=== PATIENT | male | born 1960 | race Caucasian/White ===

== ENCOUNTER 2019-01-27 08:07 | Emergency (ER) | payer MEDICARE ==
[~2019-01-27] VITALS: Ht 182.9 cm; Wt 113.4 kg
[~2019-01-27 08:07] MED LIST: DIAZ5; HYDACE5 PO; LEVFLO500 PO; OXYB5
[2019-01-27] MEDS ORDERED: Percocet 5-3251 EACH PO (09:12)
== END 2019-01-27 12:34 | disposition home or self-care (01) ==
LOC: ER 08:07
DX: M25.511 Pain in right shoulder (principal); Z91.041 Radiographic dye allergy status; Z79.899 Other long term (current) drug therapy
CPT/HCPCS: 73030; 99283-25

== ENCOUNTER 2019-05-08 22:15 | Observation (INO) | payer MEDICARE ==
[~2019-05-08] VITALS: Ht 182.9 cm; Wt 108.9 kg
[~2019-05-08 22:15] MED LIST changes: +Percocet 5-3251 EACH PO
[2019-05-08] MEDS ORDERED: ZESTORETIC 20-121 EA PO (22:28)
[2019-05-09 03:12] LABS: Source, Urine Catheter
[2019-05-09 03:14] LABS: Appearance, Urine Cloudy (Clear); Bilirubin, Urine Neg (Neg); Blood, Urine 4+ (Neg); Color, Urine Yellow (P-Yellow); Glucose Qualitative, Urine Neg (Neg); Ketones, Urine 2+ (Neg); Leukocyte Esterase, Urine 3+ (Neg); Nitrite, Urine Pos (Neg); Protein, Urine 2+ (Neg); Specific Gravity, Urine 1.015 (1.003-1.022); Urobilinogen, Urine 2+ (Normal)
[2019-05-09 03:20] LABS: Bacteria Many /hpf; Red Blood Cells, Urine 0-2 /hpf (0-2); White Blood Cells, Urine TNTC /hpf (0-5)
[2019-05-09 03:21] LABS: Squamous Epithelial Cells Few /hpf (Few); Triple Phosphate Crystals Many /hpf
--- NOTE | 2019-05-09 03:29 | NUR ---
COMPLETE BED BATH WAS GIVEN. SUPRAPUBIC CATH BAG WAS CHANGED AND UA WAS SENT. DR. MONACO WAS INFORMED OF UA RESULTS, NO ORDERS FOR ABX. STATES IF PT BECOMES SYMPTOMATIC WITH FEVER TO CALL AND WILL START ON ABX.
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
--- NOTE | 2019-05-09 11:10 | NUR ---
Advance Directive education conducted. Upon receiving and admit referral for advance directive education, I visited patient. I talked about the importance, content and process of the advance directive. I also discussed how to file the information. Patient had limited comprehension and interest. Patient received a phone call so our discussion got cut short but I left a booklet with the patient and he thanked me for it.
[2019-05-09] MEDS ORDERED: CIPR500 PO (13:59)
--- NOTE | 2019-05-09 17:50 | NUR ---
SHIFT SUMMARY PT A&OX4, VSS, PLAN IS FOR DC HOME WITH HH, PT IS WORKING ON A [employer] HOME, CAREGIVERS 24 HOUR. CIPRO SCRIPT FAXED TO [facility]. WILL REPORT TO ESMER ACUNA RN IF PT DOES NOT DC.
--- NOTE | 2019-05-10 04:07 | NUR ---
SHIFT SUMMARY PT RESTED QUIETLY IN BED T/O SHIFT W/OUT ANY ACUTE CHANGES. A/OX4 WITH VSS. ABLE TO VISIT WITH NEW CAREGIVER THIS EVENING. MEPILEX TO BUTTOCKS C/D/I. SUPER PUBIC CATH IN PLACE DRAINING AISHWARYA COLORED URINE. ASSISTED W/ADL'S AND REPOSITIONING PRN. IS CURRENTLY RESTING IN BED WITH CPAP IN PLACE- SPO2 AT 93% AND HAS CALL LIGHT WITHIN REACH. PLAN FOR D/C HOME TODAY WITH H/H. WILL CONT TO MONITOR AND GIVE REPORT TO ONCOMING RN.
--- NOTE | 2019-05-10 10:05 | NUR ---
DISCHARGE SUMMARY PT A&OX4, VSS, LEFT FLOOR IN HIS OWN WC WITH HIS BROTHER, ALONG WITH HIS PERSONAL POSSESSIONS AND DC PACKET AND SCRIPT FOR S[place]; SCRIPT FOR ABX WAS FAXED TO [facility] WITH CONFIRMATION PAGE OF RECEIPT IN CHART. DC INSTRUCTIONS PROVIDED. PT REP UNDERSTANDING THOSE INSTRUCTIONS INCLUDING [facility] WILL FU, MEPILEX CHANGES TO BUTTOCKS AND DMAIEN HEELS, ABX AT PHARMACY. NO IV TO DC.
== END 2019-05-10 10:05 | disposition home health service (06) ==
LOC: ER 22:15 → SURS 22:16
PROVIDERS: ADMIT Hospitalist
DX: L89.152 Pressure ulcer of sacral region, stage 2 (principal); G82.21 Paraplegia, complete; S24.102S Unspecified injury at T2-T6 level of thoracic spinal cord, sequela; G90.4 Autonomic dysreflexia; N31.9 Neuromuscular dysfunction of bladder, unspecified; I10 Essential (primary) hypertension; R82.81 Pyuria; G47.30 Sleep apnea, unspecified; E66.9 Obesity, unspecified; Z68.32 Body mass index [BMI] 32.0-32.9, adult; Z88.5 Allergy status to narcotic agent; Z88.6 Allergy status to analgesic agent; Z91.041 Radiographic dye allergy status; Z79.899 Other long term (current) drug therapy; Z96.0 Presence of urogenital implants; X58.XXXS Exposure to other specified factors, sequela
CPT/HCPCS: 81001; 87086; 94660; 94762; 96372; 99284; A9270-GY; G0378; J0696; J1650

== ENCOUNTER 2024-04-03 04:14 | Day surgery (SDC) | payer MEDICARE ==
[~2024-04-03 04:14] MED LIST changes: +CIPR500 PO; +ZESTORETIC 20-121 EA PO
== END 2024-04-03 23:00 | disposition home or self-care (01) ==
LOC: WOUND 04:14
DX: L89.153 Pressure ulcer of sacral region, stage 3 (principal); L89.324 Pressure ulcer of left buttock, stage 4; L89.314 Pressure ulcer of right buttock, stage 4; I10 Essential (primary) hypertension
CPT/HCPCS: A6213; G0463

== ENCOUNTER 2024-04-11 01:51 | Day surgery (SDC) | payer MEDICARE | END 2024-04-11 23:00 | disposition home or self-care (01) | LOC: WOUND 01:51 | DX: L89.304 Pressure ulcer of unspecified buttock, stage 4 (principal); L89.153 Pressure ulcer of sacral region, stage 3; I10 Essential (primary) hypertension; G82.20 Paraplegia, unspecified; G47.33 Obstructive sleep apnea (adult) (pediatric) | CPT/HCPCS: A6213 ==

== ENCOUNTER 2024-04-18 05:44 | Day surgery (SDC) | payer MEDICARE ==
[2024-04-18] MEDS ORDERED: Lidocaine HCl 4% Cream 5 GM ONE (14:57)
[2024-04-18] MEDS ORDERED: Silver Nitr/Potassium Nitrate 1 EA APPL ONE ×2 (15:14→15:18)
== END 2024-04-18 23:00 | disposition home or self-care (01) ==
LOC: WOUND 05:44
DX: L89.304 Pressure ulcer of unspecified buttock, stage 4 (principal); L89.153 Pressure ulcer of sacral region, stage 3; I10 Essential (primary) hypertension; G82.20 Paraplegia, unspecified; G47.33 Obstructive sleep apnea (adult) (pediatric)
CPT/HCPCS: A6213; A9270

== ENCOUNTER 2024-05-02 06:25 | Day surgery (SDC) | payer MEDICARE ==
[2024-05-02] MEDS ORDERED: Lidocaine HCl 4% Cream 5 GM ONE (15:54)
== END 2024-05-02 23:00 | disposition home or self-care (01) ==
LOC: WOUND 06:25
DX: L89.153 Pressure ulcer of sacral region, stage 3 (principal); L89.304 Pressure ulcer of unspecified buttock, stage 4; L89.314 Pressure ulcer of right buttock, stage 4; G47.33 Obstructive sleep apnea (adult) (pediatric); I10 Essential (primary) hypertension
CPT/HCPCS: 87071; 87075; 87077; 87147; 87186; 87205; A6213; A9270

== ENCOUNTER 2024-05-09 04:45 | Day surgery (SDC) | payer MEDICARE ==
[2024-05-09] MEDS ORDERED: Lidocaine HCl 4% Topical Soln 50 ML BTL ONE (13:03)
== END 2024-05-09 23:00 | disposition home or self-care (01) ==
LOC: WOUND 04:45
DX: L89.314 Pressure ulcer of right buttock, stage 4 (principal); L89.894 Pressure ulcer of other site, stage 4; L89.153 Pressure ulcer of sacral region, stage 3; I10 Essential (primary) hypertension; G82.20 Paraplegia, unspecified; G47.33 Obstructive sleep apnea (adult) (pediatric); S21.90XA Unspecified open wound of unspecified part of thorax, initial encounter; Z87.891 Personal history of nicotine dependence; Z91.041 Radiographic dye allergy status; Z88.5 Allergy status to narcotic agent; Z88.8 Allergy status to other drugs, medicaments and biological substances; Z79.899 Other long term (current) drug therapy
CPT/HCPCS: 71046; 99283-25; A6213; G0463

== ENCOUNTER 2024-05-09 14:18 | Emergency (ER) | payer MEDICARE ==
[~2024-05-09] VITALS: Ht 182.9 cm; Wt 104.3 kg
[2024-05-09 19:30] VITALS: BP 159/65
== END 2024-05-09 20:00 | disposition home or self-care (01) ==
LOC: ER 14:18
DX: S21.90XA Unspecified open wound of unspecified part of thorax, initial encounter (principal); I10 Essential (primary) hypertension; G82.20 Paraplegia, unspecified; Z87.891 Personal history of nicotine dependence; Z91.041 Radiographic dye allergy status; Z88.5 Allergy status to narcotic agent; Z88.8 Allergy status to other drugs, medicaments and biological substances; Z79.899 Other long term (current) drug therapy
CPT/HCPCS: 71046; 99283-25

== ENCOUNTER 2024-05-16 02:05 | Day surgery (SDC) | payer MEDICARE | END 2024-05-16 23:00 | disposition home or self-care (01) | LOC: WOUND 02:05 | DX: L89.153 Pressure ulcer of sacral region, stage 3 (principal); L89.324 Pressure ulcer of left buttock, stage 4; L89.314 Pressure ulcer of right buttock, stage 4; L89.894 Pressure ulcer of other site, stage 4; I10 Essential (primary) hypertension; G82.20 Paraplegia, unspecified; G47.33 Obstructive sleep apnea (adult) (pediatric) | CPT/HCPCS: A6213 ==

== ENCOUNTER → 2024-05-23 | Day surgery (SDC) | payer MEDICARE ==
[~2024-05-23] MED LIST changes: +Lidocaine HCl 4% Cream 5 GM ONE
== END ==
LOC: WOUND 04:45
DX: L89.114 Pressure ulcer of right upper back, stage 4 (principal); L89.153 Pressure ulcer of sacral region, stage 3; L89.304 Pressure ulcer of unspecified buttock, stage 4; G82.20 Paraplegia, unspecified; I10 Essential (primary) hypertension; G47.33 Obstructive sleep apnea (adult) (pediatric)
CPT/HCPCS: A6213; A9270; G0463

== ENCOUNTER 2024-05-30 01:44 | Day surgery (SDC) | payer MEDICARE ==
[~2024-05-30 01:44] MED LIST changes: -Lidocaine HCl 4% Cream 5 GM ONE
[2024-05-30] MEDS ORDERED: Lidocaine HCl 4% Topical Soln 50 ML BTL ONE (13:59)
== END 2024-05-30 23:00 | disposition home or self-care (01) ==
LOC: WOUND 01:44
DX: L89.153 Pressure ulcer of sacral region, stage 3 (principal); L89.114 Pressure ulcer of right upper back, stage 4; L89.304 Pressure ulcer of unspecified buttock, stage 4; L89.303 Pressure ulcer of unspecified buttock, stage 3; I10 Essential (primary) hypertension

== ENCOUNTER 2024-06-20 02:34 | Day surgery (SDC) | payer MEDICARE ==
[2024-06-20] MEDS ORDERED: Lidocaine HCl 4% Topical Soln 50 ML BTL ONE (13:34)
== END 2024-06-20 23:00 | disposition home or self-care (01) ==
LOC: WOUND 02:34
DX: L89.153 Pressure ulcer of sacral region, stage 3 (principal); L89.304 Pressure ulcer of unspecified buttock, stage 4; L89.114 Pressure ulcer of right upper back, stage 4; G82.20 Paraplegia, unspecified; I10 Essential (primary) hypertension; G47.33 Obstructive sleep apnea (adult) (pediatric)
CPT/HCPCS: A6213

== ENCOUNTER 2024-07-04 02:28 | Day surgery (SDC) | payer MEDICARE ==
[2024-07-04] MEDS ORDERED: Lidocaine HCl 4% Topical Soln 50 ML BTL ONE (14:31)
== END 2024-07-04 23:00 | disposition home or self-care (01) ==
LOC: WOUND 02:28
DX: L89.153 Pressure ulcer of sacral region, stage 3 (principal); L89.894 Pressure ulcer of other site, stage 4; L89.304 Pressure ulcer of unspecified buttock, stage 4; L89.303 Pressure ulcer of unspecified buttock, stage 3; I10 Essential (primary) hypertension; G82.20 Paraplegia, unspecified; L89.114 Pressure ulcer of right upper back, stage 4
CPT/HCPCS: A6213

== ENCOUNTER 2024-07-25 02:42 | Day surgery (SDC) | payer MEDICARE ==
[2024-07-25] MEDS ORDERED: Lidocaine HCl 4% Topical Soln 50 ML BTL ONE (13:27)
== END 2024-07-25 23:00 | disposition home or self-care (01) ==
LOC: WOUND 02:42
DX: L89.153 Pressure ulcer of sacral region, stage 3 (principal); L89.114 Pressure ulcer of right upper back, stage 4; L89.324 Pressure ulcer of left buttock, stage 4; L89.314 Pressure ulcer of right buttock, stage 4; I10 Essential (primary) hypertension; G82.20 Paraplegia, unspecified
CPT/HCPCS: A6213

== ENCOUNTER 2024-08-08 04:01 | Day surgery (SDC) | payer MEDICARE ==
[2024-08-08] MEDS ORDERED: Lidocaine HCl 4% Topical Soln 50 ML BTL ONE (13:46)
== END 2024-08-08 23:00 | disposition home or self-care (01) ==
LOC: WOUND 04:01
DX: L89.153 Pressure ulcer of sacral region, stage 3 (principal); L89.324 Pressure ulcer of left buttock, stage 4; L89.314 Pressure ulcer of right buttock, stage 4; L89.114 Pressure ulcer of right upper back, stage 4; G47.33 Obstructive sleep apnea (adult) (pediatric); I10 Essential (primary) hypertension
CPT/HCPCS: A6213

== ENCOUNTER 2024-08-23 03:01 | Day surgery (SDC) | payer MEDICARE ==
[2024-08-23] MEDS ORDERED: Lidocaine HCl 4% Topical Soln 50 ML BTL ONE (13:27)
== END 2024-08-23 23:00 | disposition home or self-care (01) ==
LOC: WOUND 03:01
DX: L89.114 Pressure ulcer of right upper back, stage 4 (principal); L89.304 Pressure ulcer of unspecified buttock, stage 4; L89.153 Pressure ulcer of sacral region, stage 3; I10 Essential (primary) hypertension; G82.20 Paraplegia, unspecified; G47.33 Obstructive sleep apnea (adult) (pediatric)
CPT/HCPCS: G0463

== ENCOUNTER 2024-09-06 05:10 | Day surgery (SDC) | payer MEDICARE ==
[2024-09-06] MEDS ORDERED: Lidocaine HCl 4% Topical Soln 50 ML BTL ONE (13:48)
== END 2024-09-06 23:00 | disposition home or self-care (01) ==
LOC: WOUND 05:10
DX: L89.114 Pressure ulcer of right upper back, stage 4 (principal); L89.304 Pressure ulcer of unspecified buttock, stage 4; L89.153 Pressure ulcer of sacral region, stage 3; L89.303 Pressure ulcer of unspecified buttock, stage 3; I10 Essential (primary) hypertension; G82.20 Paraplegia, unspecified; G47.33 Obstructive sleep apnea (adult) (pediatric)
CPT/HCPCS: A6196; G0463

== ENCOUNTER 2024-10-04 02:48 | Day surgery (SDC) | payer MEDICARE ==
[2024-10-04] MEDS ORDERED: Lidocaine HCl 4% Topical Soln 50 ML BTL ONE (13:52)
== END 2024-10-04 23:00 | disposition home or self-care (01) ==
LOC: WOUND 02:48
DX: L89.304 Pressure ulcer of unspecified buttock, stage 4 (principal); L89.153 Pressure ulcer of sacral region, stage 3; L89.894 Pressure ulcer of other site, stage 4; I10 Essential (primary) hypertension; G82.20 Paraplegia, unspecified; Z88.5 Allergy status to narcotic agent; Z91.048 Other nonmedicinal substance allergy status
CPT/HCPCS: A6196; G0463

== ENCOUNTER 2024-11-29 04:22 | Day surgery (SDC) | payer MEDICARE | END 2024-11-29 23:00 | disposition home or self-care (01) | LOC: WOUND 04:22 | DX: L89.114 Pressure ulcer of right upper back, stage 4 (principal); L89.324 Pressure ulcer of left buttock, stage 4; L89.314 Pressure ulcer of right buttock, stage 4; L89.153 Pressure ulcer of sacral region, stage 3; I10 Essential (primary) hypertension; G82.20 Paraplegia, unspecified | CPT/HCPCS: A6196 ==

== ENCOUNTER 2024-12-27 03:27 | Day surgery (SDC) | payer MEDICARE ==
[2024-12-27] MEDS ORDERED: Lidocaine HCl 4% Cream 5 GM ONE (13:50)
== END 2024-12-27 23:37 | disposition home or self-care (01) ==
LOC: WOUND 03:27
DX: L89.114 Pressure ulcer of right upper back, stage 4 (principal); S81.802A Unspecified open wound, left lower leg, initial encounter; L89.324 Pressure ulcer of left buttock, stage 4; L89.314 Pressure ulcer of right buttock, stage 4; I10 Essential (primary) hypertension; G82.20 Paraplegia, unspecified
CPT/HCPCS: A9270

== ENCOUNTER 2025-01-24 00:07 | Day surgery (SDC) | payer MEDICARE | END 2025-01-24 23:00 | disposition home or self-care (01) | LOC: WOUND 00:07 | DX: L89.114 Pressure ulcer of right upper back, stage 4 (principal); L89.324 Pressure ulcer of left buttock, stage 4; L89.314 Pressure ulcer of right buttock, stage 4; I10 Essential (primary) hypertension; G82.20 Paraplegia, unspecified; G47.33 Obstructive sleep apnea (adult) (pediatric) | CPT/HCPCS: G0463 ==

== ENCOUNTER 2025-02-28 01:08 | Day surgery (SDC) | payer MEDICARE | END 2025-02-28 23:00 | disposition home or self-care (01) | LOC: WOUND 01:08 | DX: L89.324 Pressure ulcer of left buttock, stage 4 (principal); L89.314 Pressure ulcer of right buttock, stage 4; L89.114 Pressure ulcer of right upper back, stage 4; I10 Essential (primary) hypertension; G82.20 Paraplegia, unspecified; G47.33 Obstructive sleep apnea (adult) (pediatric) | CPT/HCPCS: G0463 ==

== ENCOUNTER 2025-04-04 03:15 | Day surgery (SDC) | payer MEDICARE | END 2025-04-04 23:00 | disposition home or self-care (01) | LOC: WOUND 03:15 | DX: L89.324 Pressure ulcer of left buttock, stage 4 (principal); L89.314 Pressure ulcer of right buttock, stage 4; L89.114 Pressure ulcer of right upper back, stage 4; L89.894 Pressure ulcer of other site, stage 4; G82.20 Paraplegia, unspecified; I10 Essential (primary) hypertension | CPT/HCPCS: G0463 ==